=== PATIENT | female | born 1995 | race Caucasian/White ===

== ENCOUNTER 2020-11-29 14:54 | Emergency (ER) | payer MEDICAID ==
[~2020-11-29] VITALS: Ht 172.7 cm; Wt 52.3 kg
[~2020-11-29 14:54] MED LIST: LORTAB 5/500 501 TAB PO; LORTAB ELIX0.5 MG/ML PO; PYRIDIUM 100MG100 MG PO
[2020-11-29 15:04] VITALS: TEMP 98.3
[2020-11-29 15:21] LABS: COLLECTION METHOD CLEAN CATCH
[2020-11-29 15:31] LABS: PH 8 (5-8); SQUAMOUS EPITHELIAL None Seen /hpf; URINE APPEARANCE Clear; URINE BACTERIA None Seen /hpf; URINE BILIRUBIN Negative (NEGATIVE); URINE BLOOD 2+ (NEGATIVE); URINE COLOR Straw; URINE GLUCOSE Negative (NEGATIVE); URINE KETONE Negative (NEGATIVE); URINE LEUKOCYTE ESTERASE Negative (NEGATIVE); URINE NITRATE Negative (NEGATIVE); URINE PROTEIN(semi-quant) Negative (NEGATIVE); URINE UROBILINOGEN Negative (NEGATIVE)
[2020-11-29] MEDS ORDERED: ZOFRAN ODT4 MG PO (15:57)
[2020-11-29] MEDS ORDERED: NORCO 325 MG-51 TAB PO (15:57)
[2020-11-29 16:10] VITALS: BP 104/66; PULSE 69
== END 2020-11-29 16:10 | disposition home or self-care (01) ==
LOC: COL.ER 14:54
PROVIDERS: Physician Assistant
DX: N23 Unspecified renal colic (principal); Z87.442 Personal history of urinary calculi; Z32.02 Encounter for pregnancy test, result negative
CPT/HCPCS: J1885

== ENCOUNTER 2021-07-17 21:20 | Emergency (ER) | payer MEDICAID ==
[~2021-07-17] VITALS: Ht 172.7 cm; Wt 50.0 kg
[~2021-07-17 21:20] MED LIST changes: +NORCO 325 MG-51 TAB PO; +ZOFRAN ODT4 MG PO
[2021-07-17 22:34] VITALS: TEMP 98.3
[2021-07-17 22:56] LABS: BASO # 0.1 K/mm3 (0.0-0.2); BASO % 1.3 % (0.0-2.0); EOS # 0.2 K/mm3 (0.0-0.7); EOS % 2.9 % (0.0-4.0); GRAN # 2.1 K/mm3 (1.4-6.5); GRAN % 33.3 % (42.2-75.2); HEMATOCRIT 40.7 % (37.0-47.0); HEMOGLOBIN 13.4 g/dl (12.5-16.0); LYMPH # 3.3 K/mm3 (1.2-3.4); LYMPH % 52.3 % (20.0-51.0); MEAN CELL VOLUME 90 fl (80.0-100.0); MEAN CORPUSCULAR HEMOGLOBIN 30 pg (27-31); MEAN CORPUSCULAR HGB CONC 33 g/dl (33.0-37.0); MONO # 0.6 K/mm3 (0.1-0.6); PLATELET COUNT 352 K/mm3 (130-400); RED BLOOD COUNT 4.54 M/mm3 (4.10-5.30); REDCELL DISTRIBUTION WIDTH-CV 12.4 % (11.5-14.5)
[2021-07-17 23:16] LABS: ALANINE AMINOTRANSFERASE 10 U/L (0-55); ALBUMIN 4.2 gm/dL (3.5-5.0); ALKALINE PHOSPHATASE 63 U/L (40-150); ANION GAP 7 mmol/L (7-16); AST,SGOT 14 U/L (5-34); BILIRUBIN,TOTAL 0.7 mg/dL (0.2-1.2); BLOOD UREA NITROGEN 10 mg/dL (7-19); CARBON DIOXIDE 27 mmol/L (22-29); CHLORIDE 105 mmol/L (98-107); CREATININE, serum 0.76 mg/dL (0.57-1.11); GLUCOSE 86 mg/dL (70-99); LIPASE 39 U/L (8-78); POTASSIUM 3.9 mmol/L (3.5-4.5); SODIUM 139 mmol/L (136-145)
[2021-07-17 23:22] LABS: TROPONIN-I < 0.010 ng/mL (0.00-0.033)
[2021-07-17] MEDS ORDERED: PEPCID 20MG TAB20 MG PO (23:55)
[2021-07-18 00:03] VITALS: BP 93/72; PULSE 65
== END 2021-07-18 00:03 | disposition home or self-care (01) ==
LOC: COL.ER 21:20
PROVIDERS: Emergency Medicine
DX: K21.9 Gastro-esophageal reflux disease without esophagitis (principal); Z20.822 Contact with and (suspected) exposure to COVID-19